=== PATIENT | male | born 1980 | race Caucasian/White ===

== ENCOUNTER 2023-02-06 13:44 | Outpatient (CLI) | payer OTHER, SELFPAY ==
[2023-02-06 14:26] LABS: Basophils # 0.1 10^3/uL (0.0-0.1); Basophils % 0.5 %; Eosinophils # 0.3 10^3/uL (0.0-0.8); Eosinophils % 2.7 %; Hematocrit 44.7 % (37-53); Lymphocytes # 2.2 10^3/uL (0.8-4.8); Lymphocytes % 23.8 %; Mean Corpuscular HGB Conc 33.6 g/dL (30-55); Mean Corpuscular Hemoglobin 32.2 pg (27-33); Mean Corpuscular Volume 95.9 fl (82-101); Monocytes # 0.7 10^3/uL (0.2-0.9); Monocytes % 7.4 %; Neutrophils # 5.95 10^3/uL (1.8-7.7); Neutrophils % 65.1 %; Nucleated Red Blood Cells % 0 %; Platelet Count 260 10^3/cmm (157-399); Red Blood Count 4.66 10^6/uL (3.85-5.65); Red Cell Distribution Width 13.3 % (12.1-15.1); White Blood Count 9.16 10^3/uL (3.29-11.43)
[2023-02-06 15:00] LABS: Alanine Aminotransferase 53 U/L (0-41); Albumin Level 4.4 g/dL (3.5-5.2); Alkaline Phosphatase 89 U/L (40-130); Anion Gap 16.4 (5-19); Aspartate Amino Transferase 29 U/L (0-40); Blood Urea Nitrogen 17 mg/dL (6-20); Calcium 9.2 mg/dL (8.5-10.5); Carbon Dioxide 29 mmol/L (22-29); Chloride 99 mmol/L (98-107); Chol HDL Ratio 6.25 mg/dL (1.0-5.00); Cholesterol 200 mg/dL (0-200); Globulin 2.5 g/dL (1.3-4.6); Glomerular Filtration Rate 92.1 mL/min (90-130); Glucose 179 mg/dL (65-115); HDL Cholesterol 32 mg/dL (60-100); Osmolality Calculated 296 mOsm/kg (285-295); Potassium 4.4 mmol/L (3.5-5.1); Sodium 140 mmol/L (136-145); Testosterone Total 128.7 ng/dL (249-836); Total Bilirubin 0.2 mg/dL (0.15-1.2); Total Protein 6.9 g/dL (6.6-8.7); Triglycerides 509 mg/dL (0-150)
[2023-02-06 15:27] LABS: LDL Cholesterol Direct 111 mg/dL (0-100); Luteinizing Hormone 4.5 mIU/mL (1.7-8.6)
[2023-02-07 11:38] LABS: Follicle Stimulating Hormone Q 3.3 mIU/mL (1.6-8.0)
[2023-02-10 17:05] LABS: Testosterone, Free 41.4 pg/mL (46.0-224.0)
== END 2023-02-06 13:45 | disposition home or self-care (01) ==
LOC: LAB 13:47
PROVIDERS: Visit Provider Internal Medicine
DX: R74.8 Abnormal levels of other serum enzymes (principal); R79.89 Other specified abnormal findings of blood chemistry; E29.1 Testicular hypofunction
CPT/HCPCS: 36415; 80053; 80061; 83001; 83002; 83721; 84146; 84153; 84402; 84403; 85025

== ENCOUNTER 2023-02-08 08:12 | Outpatient (CLI) | payer OTHER, SELFPAY ==
[2023-02-12 13:30] LABS: Testosterone, Free 37.4 pg/mL (46.0-224.0)
== END 2023-02-08 08:13 | disposition home or self-care (01) ==
PROVIDERS: Visit Provider Internal Medicine
DX: E29.1 Testicular hypofunction (principal)
CPT/HCPCS: 36415; 84402

== ENCOUNTER → 2023-04-30 11:06 | Outpatient (BNVA) | payer OTHER, SELFPAY | PROVIDERS: Visit Provider Internal Medicine | DX: E29.1 Testicular hypofunction (principal); E23.7 Disorder of pituitary gland, unspecified; R51.9 Headache, unspecified | CPT/HCPCS: 99214 ==

== ENCOUNTER → 2023-08-14 13:27 | Outpatient (BNVA) | payer OTHER, SELFPAY | PROVIDERS: Visit Provider Internal Medicine | DX: E29.1 Testicular hypofunction (principal); E23.7 Disorder of pituitary gland, unspecified | CPT/HCPCS: 80053; 80061; 82533; 82728; 83721; 84305; 84403; 84439; 84443; 85025 ==

== ENCOUNTER → 2023-08-20 10:45 | Outpatient (BNVA) | payer OTHER, SELFPAY | PROVIDERS: Visit Provider Internal Medicine | DX: E29.1 Testicular hypofunction (principal); E23.7 Disorder of pituitary gland, unspecified; R79.89 Other specified abnormal findings of blood chemistry; R51.9 Headache, unspecified; Z79.890 Hormone replacement therapy; Z79.4 Long term (current) use of insulin; Z79.84 Long term (current) use of oral hypoglycemic drugs | CPT/HCPCS: 99214 ==

== ENCOUNTER → 2023-09-09 08:10 | Outpatient (BNVA) | payer OTHER, SELFPAY | PROVIDERS: Visit Provider Internal Medicine | DX: E29.1 Testicular hypofunction (principal); E23.7 Disorder of pituitary gland, unspecified; R79.89 Other specified abnormal findings of blood chemistry | CPT/HCPCS: 80061; 84403; G0103 ==

== ENCOUNTER → 2024-03-06 09:45 | Outpatient (BNVA) | payer OTHER, SELFPAY | PROVIDERS: Visit Provider Internal Medicine | DX: E29.1 Testicular hypofunction (principal); R79.89 Other specified abnormal findings of blood chemistry; E23.7 Disorder of pituitary gland, unspecified; R51.9 Headache, unspecified; E55.9 Vitamin D deficiency, unspecified | CPT/HCPCS: 36415; 80053; 80061; 82044; 82306; 82728; 83036; 84270; 84402; 84403; 84681; 85025; 86337; 86341; G0103 ==